=== PATIENT | female | born 2000 | race Caucasian/White ===

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

== ENCOUNTER 2019-04-22 13:35 | Emergency (ER) | payer BC ==
--- NOTE | 2019-04-22 13:46 | Emergency Department Record ---
History of Present Illness - General Stated complaint: L FOOT INJURY Time Seen by Provider: 04/22/19 13:41 Source: Patient Mode of Arrival: Ambulatory Limitations: No limitations - History of Present Illness Initial comments: 18 yo female presents with left lateral ankle pain. She tripped on laundry last night. The pain has persisted today. She is unable to bear weight without significant pain. No achilles or foot pain. Hx of prior right foot fracture. MD Complaint: Extremity pain, Extremity swelling, Joint pain -: Hour(s) Location: Left, Ankle History of Same: No -: Yes Arthralgia Radiation: Distal Quality: Aching Consistency: Constant Improves with: Immobilization Worsens with: Weight bearing Associated Symptoms: Denies other symptoms - Related Data Home Medications Medication Instructions Recorded Confirmed Last Taken Vortioxetine Hydrobromide 5 mg PO DAILY 04/22/19 04/22/19 04/22/19 [Trintellix] Allergies Allergy/AdvReac Type Severity Reaction Status Date / Time No Known Drug Allergies Allergy Verified 04/22/19 13:45 Review of Systems Constitutional: Denies: Chills, Fever, Malaise, Weakness Eyes: Denies: Eye discharge ENT: Denies: Congestion, Throat pain Respiratory: Denies: Cough Cardiovascular: Denies: Chest pain, Syncope Endocrine: Denies: Fatigue Gastrointestinal: Denies: Abdominal pain, Diarrhea, Nausea, Vomiting Genitourinary: Denies: Dysuria, Urgency Musculoskeletal: Reports: Arthralgia, Joint swelling. Denies: Myalgia, Neck pain Skin: Denies: Bruising, Change in color, Rash Neurological: Denies: Headache Psychiatric: Denies: Anxiety Past Medical History - SOCIAL HISTORY Smoking Status: Never smoker Drug Use: None - RESPIRATORY Hx Respiratory Disorders: No - CARDIOVASCULAR Hx Cardio Disorders: No - NEURO Hx Neuro Disorders: Yes Comment:: concussion; Vasovagal syndrome-low NA, syncope - GI Hx GI Disorders: No - Hx Genitourinary Disorders: No - ENDOCRINE Hx Endocrine Disorders: No - MUSCULOSKELETAL Hx Musculoskeletal Disorders: No - PSYCH Hx Psych Problems: Yes Hx Anxiety: Yes - HEMATOLOGY/ONCOLOGY Hx Hematology/Oncology Disorders: No Family Medical History Hx Diabetes: Grandparents Hx Heart Disease: Grandparents Physical Exam - General General Appearance: Alert, Oriented x3, Cooperative, No acute distress Limitations: No limitations - Head Head exam: Atraumatic - Eye Eye exam: Normal appearance. negative: Conjunctival injection, Scleral icterus - ENT ENT exam: Normal exam Ear exam: Normal external inspection Nasal Exam: Normal inspection Mouth exam: Normal external inspection - Neck Neck exam: Normal inspection - Cardiovascular Peripheral Pulses: 2+: Dorsalis Pedis (L) - Extremities Extremities exam: Joint swelling, Tenderness. negative: Normal inspection, Full ROM Image of Feet: 1 - swelling lateral malleolus, non tender achilles, non tender lateral foot - Neurological Neurological exam: Alert, Oriented X3 - Psychiatric Psychiatric exam: Normal affect, Normal mood - Skin Skin exam: Dry, Intact, Normal color, Warm Course - Reevaluation(s) Reevaluation #1: 04/22/19 13:45 Declined pain medication 04/22/19 14:19 The XR was reviewed Lateral STS otherwise negative for acute fracture or bone abnormality We discussed weight bear as tolerable Follow with her PCP or ortho in a week if not improved 04/22/19 14:24 She will NWB with crutches and boot given the significant pain Disposition Disposition: Discharge Clinical Impression: Ankle sprain Qualifiers: Encounter type: initial encounter Involved ligament of ankle: unspecified ligament Laterality: left Qualified Code(s): S93.402A - Sprain of unspecified ligament of left ankle, initial encounter Disposition: Home, Self-Care Condition: (1) Good Instructions: Ankle Fracture (ED) Additional Instructions: Use the boot and crutches as directed for support and comfort Elevate and ice to minimize swelling Ice 3-4 times daily See your doctor in one week or your orthopedic doctor if the pain continues If the pain continues your may need additional testing for soft tissue or ligament injuries. Time of Disposition: 14:19 Quality - Quality Measures Quality Measures: N/A - Blood Pressure Screening Does Patient Have Any of the Following: No Blood Pressure Classification: Pre-Hypertensive BP Reading Systolic Measurement: 121 Diastolic Measurement: 76 Screening for High Blood Pressure: < Pre-Hypertensive BP, F/U Documented > [G8950] Pre-Hypertensive Follow-up Interventions: Referral to alternative/primary care provider.
--- NOTE | 2019-04-24 06:04 | RADIOLOGY REPORT ---
EXAM: ANKLE LEFT 3 VIEWS HISTORY: TWISTED THE LEFT ANKLE LAST NIGHT. LATERAL SOFT TISSUE SWELLING AND PAIN. PAIN WITH WEIGHTBEARING. TECHNIQUE: Three views of the left ankle were obtained. COMPARISON: None. FINDINGS: Lateral soft tissue swelling is present. The bones appear intact. There is no visible acute fracture or dislocation. The ankle mortis is unremarkable. No significant degenerative changes are appreciated. IMPRESSION: 1. LATERAL SOFT TISSUE SWELLING. 2. NO FRACTURE IDENTIFIED. JOB NUMBER: [id number] [facility]
== END 2019-04-22 14:30 | disposition home or self-care (01) ==
LOC: ER 13:35
DX: S93.402A Sprain of unspecified ligament of left ankle, initial encounter (principal); W22.8XXA Striking against or struck by other objects, initial encounter; Y93.E2 Activity, laundry
CPT/HCPCS: 99283